=== PATIENT | female | born 1965 | race Caucasian/White ===

== ENCOUNTER → 2016-07-11 | Outpatient (CLI) | payer OTHER ==
[~2016-07-11] MED LIST: ALLEGRA 180MG180 MG PO; AMBIEN5 MG PO; AMITRIPTYLINE H25 M1 PO; ASPI325T6 PO; ASPIRIN 32325 MG/TAB PO; ASPIRIN 81M81 MG/TA2 PO; ASPIRIN E.C. 8181 MG PO; ATIVAN 1MG T1 MG/TAB; ATIVAN 1MG T1 MG/TAB PO; BENADRYL25 M2 PO; BIOTIN FORTE3 MG; BLOCADREN5 MG OP; BUSPAR10 MG PO; BYSTOLIC10 MG PO; BYSTOLIC20 MG PO; CARDIZEM 60MG T60 MG PO; CARDIZEM LA240 MG PO; CARDIZEM SR 60M60 MG PO; DEMEROL PO; DEPAKOTE; DESYREL 50MG50 MG PO; DILAUDID 2MG TAB2 MG PO; ENABLEX7.5 MG PO; ESCITALOPRAM; FLEXERIL 1010 MG/TAB PO; FLEXERIL10 MG PO; FOLIC ACID 11 MG/TA1 PO; HYGROTON 2525 MG/TAB; IMDUR 30MG30 MG/TAB PO; IMDUR 60MG60 MG/TAB PO; INDERAL 20MG20 MG PO; LAMICTAL 100MG100 MG PO; LAMICTAL150 MG PO; LEVAQUIN 750MG750 M1 PO; LIQUIFILM TEARS15 ML OU; LORTAB 5/500 501 TAB PO; LYRICA; MELAT3MGTAB; MELAT3MGTAB PO; MEPERIDINE HCL50 MG PO; MIRAPEX; MIRAPEX 1MG PO; MIRAPEX0.25 MG PO; MIRAPEX0.5 MG PO; MOTRIN 800800 MG/TAB PO; MULTIPLE VITAMI1 CAP PO; NAPROXEN EC500 MG PO; NEURONTIN600 MG/TAB; NEXIUM 40MG40 MG PO; NORCO 325 MG-51 TAB PO; NORCO 325 MG-7.1 TAB PO; OXAYDO7.5 MG PO; PEPCID 20MG TAB20 MG PO; PHENERGAN 25 TA25 MG PO; PHENERGAN25 MG RC; PRILOSEC 20MG20 MG PO; PROFERRIN ES12 MG PO; RANEXA 500MG T500 MG PO; REFRESH 1 ML1 ML OP; REFRESH TEARS 330 ML OP; ROBAXIN 50500 MG/TAB PO; SOMA 350MG350 MG/TAB PO; THALITONE15 MG PO; TIAZAC180 MG PO; TIMOLOL MALEATE5 M1 OP; TIMOPTIC 0.25%-10 OU; TOPROL XL 50MG50 MG PO; TOPROL XL50 MG PO; TRAZODONE150 MG PO; ULTRAM 50MG TAB50 MG PO; VALIUM 2MG T2 MG/TAB PO; VALIUM5 MG PO; VESICARE 5MG5 MG PO; VISTARIL 2525 MG/CAP PO; VIT B; VIT D; VITAMIN B COMPL1 SGL; VITAMIN D1000 IU PO; VITAMIN D5000 IU PO; WELLBUTRIN PO; WELLBUTRIN SR200 MG PO; WELLBUTRIN XL150 MG PO; WELLBUTRIN XL300 M1 PO; ZANAFLEX CAPSULE2 MG PO; ZANAFLEX CAPSULE4 MG PO; ZESTRIL 10MG10 MG PO; ZOLOFT 50MG50 MG PO; ZYRTEC 10MG10 MG PO; [UNRECOGNIZED DRUG - OTHER]; [UNRECOGNIZED DRUG - OTHER]; [UNRECOGNIZED DRUG - REMARK]; enablex
== END ==
LOC: COL.RAD 08:38
DX: M25.522 Pain in left elbow (principal)
CPT/HCPCS: A9503

== ENCOUNTER → 2016-09-26 | Outpatient (CLI) | payer OTHER | LOC: BHSO 14:56 | DX: F06.32 Mood disorder due to known physiological condition with major depressive-like episode (principal) ==

== ENCOUNTER → 2016-11-02 | Outpatient (CLI) | payer OTHER | LOC: BHSO 09:36 | DX: F06.32 Mood disorder due to known physiological condition with major depressive-like episode (principal) ==

== ENCOUNTER → 2016-12-26 | Outpatient (CLI) | payer OTHER | LOC: BHSO 10:32 | DX: F06.32 Mood disorder due to known physiological condition with major depressive-like episode (principal) ==

== ENCOUNTER 2017-01-21 21:59 | Emergency (ER) | payer OTHER ==
[~2017-01-21] VITALS: Ht 167.6 cm; Wt 90.4 kg
[~2017-01-21 21:59] MED LIST changes: -CARDIZEM 60MG T60 MG PO; -LIQUIFILM TEARS15 ML OU; -MIRAPEX 1MG PO; -PROFERRIN ES12 MG PO
[2017-01-21 22:02] VITALS: TEMP 97.8
[2017-01-21 22:40] LABS: BASO # 0.1 (0.0-0.2); BASO % 0.4 % (0.0-2.0); EOS # 0.2 (0.0-0.7); EOS % 0.9 % (0-4.0); GRAN # 10.9 (1.4-6.5); GRAN % 64.9 % (42.2-75.2); HEMATOCRIT 41.5 % (37.0-47.0); HEMOGLOBIN 14.5 g/dl (12.5-16.0); LYMPH # 4.8 (1.2-3.4); LYMPH % 28.5 % (20.0-51.0); MEAN CELL VOLUME 85 fl (80.0-100.0); MEAN CORPUSCULAR HEMOGLOBIN 30 pg (27.0-31.0); MEAN CORPUSCULAR HGB CONC 35 g/dl (33.0-37.0); MEAN PLATELET VOLUME 10.3 fl (7.4-10.4); MONO # 0.7 (0.1-0.6); MONO % 4.2 % (1.7-9.3); PLATELET COUNT 411 K/mm3 (130-400); RED BLOOD COUNT 4.91 M/mm3 (4.10-5.30); REDCELL DISTRIBUTION WIDTH-CV 12.6 % (11.5-14.5); WHITE BLOOD COUNT 16.9 K/mm3 (4.8-10.8)
[2017-01-21 22:48] LABS: INR 0.9 (0.8-3.0); PROTHROMBIN TIME 9.9 SECONDS (9.7-12.8)
[2017-01-21 22:52] LABS: ADJUSTED CALCIUM 9.6 mg/dL (8.4-10.2); ALANINE AMINOTRANSFERASE 67 U/L (9-52); ALBUMIN 4.8 gm/dL (3.5-5.0); ALKALINE PHOSPHATASE 83 U/L (50-136); ANION GAP 16 mmol/L (7-16); BILIRUBIN,TOTAL 0.4 mg/dL (0.0-1.0); BLOOD UREA NITROGEN 18 mg/dL (7-17); CALCIUM 10.2 mg/dL (8.4-10.2); CARBON DIOXIDE 23 mmol/L (22-30); CHLORIDE 101 mmol/L (98-107); CREATININE, serum 0.73 mg/dL (0.52-1.25); GLUCOSE 305 mg/dL (74-106); POTASSIUM 3.3 mmol/L (3.4-5.0); SODIUM 139 mmol/L (137-145); TOTAL PROTEIN 7.7 gm/dL (6.4-8.2)
[2017-01-21 22:53] LABS: C-REACTIVE PROTEIN 0.5 mg/dL (0.0-0.9)
[2017-01-21 23:03] LABS: TROPONIN-I < 0.012 ng/mL (0.000-0.034)
[2017-01-21 23:16] LABS: PH 5 (5-8); SQUAMOUS EPITHELIAL 0-2 /hpf; URINE APPEARANCE Clear; URINE BACTERIA None Seen /hpf; URINE BILIRUBIN Negative (NEGATIVE); URINE BLOOD Negative (NEGATIVE); URINE COLOR Yellow; URINE GLUCOSE 3+ (NEGATIVE); URINE KETONE Negative (NEGATIVE); URINE RBC 0-2 /hpf; URINE UROBILINOGEN Negative (NEGATIVE); URINE WBC 0-2 /hpf
[2017-01-22 00:30] VITALS: BP 121/82; PULSE 81
[2017-01-22] MEDS ORDERED: CARDIZEM 60MG T60 MG PO (05:23)
[2017-01-22] MEDS ORDERED: ALLEGRA 180MG180 MG PO (05:37)
[2017-01-22] MEDS ORDERED: LIQUIFILM TEARS15 ML OU (05:38)
[2017-01-22] MEDS ORDERED: PROFERRIN ES12 MG PO (05:38)
[2017-01-22] MEDS ORDERED: MIRAPEX 1MG PO (05:39)
[2017-01-22] MEDS ORDERED: NORCO 325 MG-51 TAB PO (05:43)
== END 2017-01-22 00:30 | disposition home or self-care (01) ==
LOC: COL.ER 21:59
PROVIDERS: Family Medicine
DX: E11.9 Type 2 diabetes mellitus without complications (principal); E86.0 Dehydration; Z79.82 Long term (current) use of aspirin
CPT/HCPCS: J7030

== ENCOUNTER → 2017-03-25 | Outpatient (CLI) | payer OTHER ==
[~2017-03-25] MED LIST changes: +CARDIZEM 60MG T60 MG PO; +LIQUIFILM TEARS15 ML OU; +MIRAPEX 1MG PO; +PROFERRIN ES12 MG PO
== END ==
LOC: BHSO 10:51
DX: F06.32 Mood disorder due to known physiological condition with major depressive-like episode (principal)

== ENCOUNTER → 2017-05-01 | Outpatient (CLI) | payer OTHER | LOC: BHSO 11:46 | DX: F06.32 Mood disorder due to known physiological condition with major depressive-like episode (principal) ==

== ENCOUNTER → 2018-01-31 | Outpatient (CLI) | payer OTHER | LOC: BHSO 14:29 | DX: F06.32 Mood disorder due to known physiological condition with major depressive-like episode (principal) | CPT/HCPCS: G0463 ==

== ENCOUNTER → 2018-03-04 | Outpatient (CLI) | payer OTHER | LOC: BHSO 10:20 | DX: F06.32 Mood disorder due to known physiological condition with major depressive-like episode (principal) | CPT/HCPCS: G0463 ==

== ENCOUNTER → 2018-04-17 | Outpatient (CLI) | payer OTHER | LOC: BHSO 14:02 | DX: F06.32 Mood disorder due to known physiological condition with major depressive-like episode (principal) | CPT/HCPCS: G0463 ==

== ENCOUNTER → 2018-05-30 | Outpatient (CLI) | payer OTHER | LOC: BHSO 08:05 | DX: F06.32 Mood disorder due to known physiological condition with major depressive-like episode (principal) | CPT/HCPCS: G0463 ==

== ENCOUNTER → 2018-07-25 | Outpatient (CLI) | payer OTHER | LOC: BHSO 13:49 | DX: F06.32 Mood disorder due to known physiological condition with major depressive-like episode (principal) ==

== ENCOUNTER → 2018-10-16 | Outpatient (CLI) | payer OTHER | LOC: COL.RAD 07:53 | DX: M25.552 Pain in left hip (principal) | CPT/HCPCS: J3301; Q9967 ==

== ENCOUNTER → 2018-10-22 | Outpatient (CLI) | payer OTHER | LOC: BHSO 13:53 | DX: F06.32 Mood disorder due to known physiological condition with major depressive-like episode (principal) | CPT/HCPCS: G0463 ==

== ENCOUNTER → 2018-12-15 | Outpatient (CLI) | payer OTHER | LOC: COL.RAD 08:00 | DX: M25.552 Pain in left hip (principal) | CPT/HCPCS: J3301; Q9967 ==

== ENCOUNTER → 2019-02-17 | Outpatient (CLI) | payer OTHER | LOC: BHSO 15:43 | DX: F06.32 Mood disorder due to known physiological condition with major depressive-like episode (principal) | CPT/HCPCS: G0463 ==

== ENCOUNTER → 2019-06-22 | Outpatient (CLI) | payer OTHER | LOC: COL.RAD 08:00 | DX: G57.02 Lesion of sciatic nerve, left lower limb (principal) | CPT/HCPCS: J3301; Q9967 ==

== ENCOUNTER → 2019-06-26 | Outpatient (CLI) | payer OTHER | LOC: COL.RAD 10:31 | DX: G57.02 Lesion of sciatic nerve, left lower limb (principal) | CPT/HCPCS: J3301 ==

== ENCOUNTER → 2019-09-22 | Outpatient (CLI) | payer OTHER | LOC: COL.RAD 12:53 | DX: M79.18 Myalgia, other site (principal) | CPT/HCPCS: J3301 ==

== ENCOUNTER → 2019-09-30 | Outpatient (CLI) | payer OTHER | LOC: COL.RAD 10:15 | DX: G43.719 Chronic migraine without aura, intractable, without status migrainosus (principal) ==

== ENCOUNTER → 2019-11-23 | Outpatient (CLI) | payer OTHER | LOC: BHSO 13:15 | DX: F06.32 Mood disorder due to known physiological condition with major depressive-like episode (principal) | CPT/HCPCS: G0463 ==

== ENCOUNTER 2020-02-06 19:57 | Emergency (ER) | payer OTHER ==
[~2020-02-06] VITALS: Ht 167.6 cm; Wt 87.3 kg
[2020-02-06 20:48] LABS: BASO # 0.1 (0.0-0.2); BASO % 0.5 % (0.0-2.0); EOS # 0.3 (0.0-0.7); EOS % 3.3 % (0-4.0); GRAN # 6.4 (1.4-6.5); GRAN % 63.7 % (42.2-75.2); HEMOGLOBIN 12.3 g/dl (12.5-16.0); LYMPH # 2.8 (1.2-3.4); LYMPH % 27.8 % (20.0-51.0); MEAN CELL VOLUME 85 fl (80.0-100.0); MEAN CORPUSCULAR HEMOGLOBIN 28 pg (27.0-31.0); MEAN CORPUSCULAR HGB CONC 33 g/dl (33.0-37.0); MEAN PLATELET VOLUME 10.4 fl (7.4-10.4); MONO # 0.4 (0.1-0.6); MONO % 3.5 % (1.7-9.3); PLATELET COUNT 382 K/mm3 (130-400); RED BLOOD COUNT 4.36 M/mm3 (4.10-5.30); REDCELL DISTRIBUTION WIDTH-CV 12.8 % (11.5-14.5)
[2020-02-06 20:54] LABS: ALBUMIN 4.2 gm/dL (3.5-5.0); BILIRUBIN,TOTAL 0.4 mg/dL (0.0-1.0); C-REACTIVE PROTEIN 1.1 mg/dL (0.0-0.9); CALCIUM 9.4 mg/dL (8.4-10.2); CREATININE, serum 0.64 (0.52-1.25); POTASSIUM 3.9 mmol/L (3.4-5.0); TOTAL PROTEIN 6.9 gm/dL (6.4-8.2)
[2020-02-06 21:17] LABS: ERYTHROCYTE SEDIMENTATION RATE 14 mm/hr (0-30)
[2020-02-06 22:07] VITALS: BP 129/79; PULSE 78; TEMP 98.2
== END 2020-02-06 22:10 | disposition home or self-care (01) ==
LOC: COL.ER 19:57
PROVIDERS: Emergency Medicine
DX: E11.9 Type 2 diabetes mellitus without complications (principal); G89.18 Other acute postprocedural pain; M25.552 Pain in left hip; I10 Essential (primary) hypertension; Z79.82 Long term (current) use of aspirin
CPT/HCPCS: J2405; J3010; J7030

== ENCOUNTER → 2020-04-26 | Outpatient (CLI) | payer OTHER | LOC: COL.VAS 13:46 | DX: R22.43 Localized swelling, mass and lump, lower limb, bilateral (principal) ==

== ENCOUNTER 2021-09-11 18:14 | Inpatient (IN) | payer OTHER ==
[~2021-09-11] VITALS: Ht 167.6 cm; Wt 77.7 kg
[2021-09-11] MEDS ORDERED: ZANAFLEX 4MG TAB4 MG PO (20:11)
[2021-09-11] MEDS ORDERED: ROXICODONE 55 MG/TAB PO (20:11)
[2021-09-11] MEDS ORDERED: ZOFRAN 4MG T4 MG/TAB PO (20:12)
[2021-09-11] MEDS ORDERED: CLARITIN 1010 MG/TAB PO (20:13)
[2021-09-11] MEDS ORDERED: NAPROSYN 2250 MG/TAB PO (20:14)
[2021-09-11] MEDS ORDERED: FLOMAX 0.40.4 MG/CAP PO (20:14)
[2021-09-11] MEDS ORDERED: VALTREX1 GM PO (20:15)
[2021-09-11] MEDS ORDERED: WELLBUTRIN SR150 M1 PO ×2 (20:17)
[2021-09-11] MEDS ORDERED: JANUVIA 100MG100 MG PO (20:19)
[2021-09-11] MEDS ORDERED: BYSTOLIC10 MG PO (20:20)
[2021-09-11] MEDS ORDERED: NITROSTAT0.4 MG/TAB SL (20:24)
[2021-09-11] MEDS ORDERED: NOVOLOG FLEX100 U/ML SQ ×2 (20:27)
[2021-09-11] MEDS ORDERED: PROTONIX 40MG T40 MG PO (20:28)
[2021-09-11] MEDS ORDERED: CALCIUM 600MG+D1 TAB PO (20:29)
[2021-09-11] MEDS ORDERED: LANTUS SOLOS100 U/ML SQ (20:29)
[2021-09-11] MEDS ORDERED: TRULICITY1.5 MG/0.5 SQ (20:30)
[2021-09-11 21:25] VITALS: BP 148/78; PULSE 78
[2021-09-11 21:31] VITALS: BP 157/75; PULSE 84; TEMP 98.1
[2021-09-11 21:40] VITALS: BP 140/74; PULSE 94
[2021-09-11 21:55] VITALS: BP 128/72; PULSE 80
[2021-09-11 22:55] VITALS: BP 119/74; PULSE 88
--- NOTE | 2021-09-11 23:11 | NUR ---
Patient arrived to surgical floor from [place] via EMS at approximately 2000. at bedside. Patient is alert and oriented x 4, and able to make needs known. Reports pain currently at a 4. Pain is to bilateral kidneys, but more on the left side than the right. Described at stabbing, and radiates to entire back, making it throb. Peripheral IV to right forearm. Updated med rec with patient, and called Dr. De La Rosa for orders. Started on [place] PUBLIC SPEAKING TEACHER. Ana voiced understanding on how PUBLIC SPEAKING TEACHER pump worked. Second nurse verrifed settings prior to starting. LS CTA. HRR. BSAx4. No edema. Patient has not urinated so far, but is aware that there is a urine hat in toilet to catch all urine and to call when done so that urine can be strained. Patient voices no questions, needs, or concerns at this time. In bed with call light within reach.
[2021-09-11 23:55] VITALS: BP 136/77; PULSE 102; TEMP 98.5
[2021-09-12] VITALS (18 sets, daily range): BP systolic 112–149; BP diastolic 65–89; PULSE 80–105; TEMP 97.8–98.8
--- NOTE | 2021-09-12 05:47 | NUR ---
Patient continues on MAKE UP OPERATOR HELPER pump per orders. Denies having pain and discomfort at this time. Voices no questions, needs, or concerns at this time. In bed with call light within reach.
--- NOTE | 2021-09-12 07:45 | NUR ---
PT SITTING UP IN BED WATCHING MOVIES ON IPAD. PT STATES THAT SHE IS "GETTING A LITTLE SHAKY FROM HER BS BEING LOWER." SIPS OF APPLE JUICE WAS GIVEN TO PT WITH MORNING MEDICATIONS. PT STATES THAT HER PAIN IS BEING VERY WELL CONTROLLED WITH THE SMALL CRAFT OPERATOR. PT STATES NO NEEDS AT THIS TIME. CONTINUES TO BE NPO FOR PROCEDURE TODAY. CALL LIGHT IS WITHIN REACH.
--- NOTE | 2021-09-12 10:02 | NUR ---
Several visit attempts; Mattress Filler left card letting patient know of the availability of Spirit[facility] Care at our hospital and offering God's blessings.
--- NOTE | 2021-09-12 11:36 | NUR ---
SW met with the patient to discuss discharge plan. The patient lives alone in [place]. She reports independence with ADLs and has a cane and walker. The patient's PCP is Dr. San and she receives her medications from [facility]. The patient does not have a DPOA-HC in EMR, but she states that she does have one completed and that she designated her , Serafin Carter" (ph#[phone]). She states that they are right now and he is living in [place]. She states that she still wants him as his DPOA-HC. The patient plans on returning home upon discharge. No additional needs at this time. *Discharge plan: home*
--- NOTE | 2021-09-12 12:12 | NUR ---
PT OFF FLOOR FOR PROCEDURE
--- NOTE | 2021-09-12 17:25 | NUR ---
PT RETURNED TO FLOOR FROM PROCEDURE. PT ON 3LIT VIA OXY MASK. PT STATES THAT SHE IS HAVING SOME BLADDER CRAMPING. PT STATES SHE HAS TO PEE. ASSITED PT TO BATHROOM AND WAS ABLE TO VOID 300 ML BLOODY URINE. PT STATES SHE WOULD LIKE TO HAVE SOME BROTH. ITEM WAS GIVEN TO PT. PT STATES NO OTHER NEEDS AT THIS TIME. CALL LIGHT IS WITHIN REACH.
[2021-09-13 00:58] VITALS: BP 123/76; PULSE 96; TEMP 97.8
--- NOTE | 2021-09-13 01:41 | NUR ---
Patient assessed around 2014. At that time, patient reported level 9 pain, did not want to go home for the night due to not being able to manage pain at home on just oral pain medication. Given PRN Levsin, Toradol, and Tinzanadine at that time. Also given scheduled Naproxen. Spoke with Dr. Najera. Increased Toradol to 30. Updated order and given an additional 15 mg around 2200. Patient wanted to stay the night for pain management. Reports hematuria, and reported small kidney stone being passed. Patient given PRN Roxicodone around 0130 as well as Levsin. IV fluids running per orders. Voices no questions, needs, or concerns at this time. In bed with call light within reach. Patient did get out of bed and ambulate in hallways.
[2021-09-13 03:04] VITALS: BP 128/69; PULSE 88; TEMP 98
[2021-09-13 03:22] VITALS: BP 128/69; PULSE 88; TEMP 98
--- NOTE | 2021-09-13 03:49 | NUR ---
At approximately 0300, patient called and reported that she was coming back from the bathroom, trying to sit on bed, but did not get close enough to the bed, and slid onto the floor when trying to sit down. VS obtained and documented. Denies any new pain or discomfort. No redness, skin tears, or abrasions noted at time of assessment. Denies hitting head. Patient was sitting in upright position against bed when staff had entered room. Assisted up with two assist to bed. Called and notified Dr. Merritt. Bagging Salvager aware. Patient voices no questions, needs, or concerns at this time. In bed with call light within reach.
--- NOTE | 2021-09-13 05:55 | NUR ---
Patient recieved PRN Roxicodone as requested for pain twice during the night. Did ask if she had any more IV pain medication. Explained to patient that she has an order for IV Toradol but can only have it every 8 hours and it was too soon to give it at that time. Voiced understanding. Voices no further questions, needs, or concerns at this time. In bed with call light within reach. INT'd fluids due to adequate PO intake.
--- NOTE | 2021-09-13 07:35 | NUR ---
Return call from Urology [facility] Rooney . Patient pain and concerns reviewed. Increase in Roxicodone made. Also resumed home dose of Bp Medication.
--- NOTE | 2021-09-13 08:00 | NUR ---
Patient Am medications given & reviewed. Increased dose of Roxicodone given as well as levsin to address her pain. Patient sitting up in bed. Awaiting her to arrive to have breakfast. Novolog given per orders. Plan for discharge home today. Patient dressed in home clothing, reviewed safety due to her fall over night, but noncompliant with fall policy.
[2021-09-13 08:12] VITALS: BP 137/84; PULSE 73; TEMP 97.9
--- NOTE | 2021-09-13 10:18 | NUR ---
Initial visit; Patient thanked Certified Coder for looking in on her and offering God's blessings. Certified Coder will keep Lottie in her prayers.
--- NOTE | 2021-09-13 11:35 | NUR ---
Patient ready for discharge. Her spouse at bedside. She reports her pain is improved. Int Dc. We reviewed discharge paperwork. She is aware of follow up appt. Denies questions or concerns at this time. Jennifer wheeled out with all belongings & her spouse taking her home
== END 2021-09-13 11:46 | disposition home or self-care (01) | DRG 661 ==
LOC: SURG 18:14 → MEDICAL 09-13 10:25 → SURG 09-13 11:46
PROVIDERS: Urology; ADMIT Urology
PROC: 0T768DZ Dilation of Right Ureter with Intraluminal Device, Via Natural or Artificial Opening Endoscopic (ICD-10-PCS; principal; 2021-09-12 14:45)
PROC: 0TC68ZZ Extirpation of Matter from Right Ureter, Via Natural or Artificial Opening Endoscopic (ICD-10-PCS; 2021-09-12 14:45)
PROC: BT1D1ZZ Fluoroscopy of Right Kidney, Ureter and Bladder using Low Osmolar Contrast (ICD-10-PCS; 2021-09-12 14:45)
DX: N20.1 Calculus of ureter (principal); G89.29 Other chronic pain; M54.9 Dorsalgia, unspecified; I25.119 Atherosclerotic heart disease of native coronary artery with unspecified angina pectoris; I10 Essential (primary) hypertension; K21.9 Gastro-esophageal reflux disease without esophagitis; M79.7 Fibromyalgia; F41.9 Anxiety disorder, unspecified; E11.9 Type 2 diabetes mellitus without complications; N28.9 Disorder of kidney and ureter, unspecified; G25.81 Restless legs syndrome; Z96.651 Presence of right artificial knee joint; Z79.82 Long term (current) use of aspirin; Z79.4 Long term (current) use of insulin; Z87.442 Personal history of urinary calculi
CPT/HCPCS: OP; C1769; C2617; G0378; G0379; J0690; J1100; J1170; J1200; J1815; J1885; J2270; J2405; J2704; J3010; J7030; Q9967

== ENCOUNTER → 2021-09-18 | Outpatient (CLI) | payer OTHER ==
[~2021-09-18] MED LIST changes: +CALCIUM 600MG+D1 TAB PO; +CLARITIN 1010 MG/TAB PO; +FLOMAX 0.40.4 MG/CAP PO; +JANUVIA 100MG100 MG PO; +LANTUS SOLOS100 U/ML SQ; +NAPROSYN 2250 MG/TAB PO; +NITROSTAT0.4 MG/TAB SL; +NOVOLOG FLEX100 U/ML SQ; +PROTONIX 40MG T40 MG PO; +ROXICODONE 55 MG/TAB PO; +TRULICITY1.5 MG/0.5 SQ; +VALTREX1 GM PO; +WELLBUTRIN SR150 M1 PO; +ZANAFLEX 4MG TAB4 MG PO; +ZOFRAN 4MG T4 MG/TAB PO
== END ==
LOC: MHCPAIN 15:17
DX: M53.3 Sacrococcygeal disorders, not elsewhere classified (principal); M47.816 Spondylosis without myelopathy or radiculopathy, lumbar region; M54.16 Radiculopathy, lumbar region; M96.1 Postlaminectomy syndrome, not elsewhere classified
CPT/HCPCS: G0463

== ENCOUNTER 2021-12-01 08:45 | Day surgery (SDC) | payer OTHER ==
[2021-12-01] VITALS (135 sets, daily range): BP systolic 112–151; BP diastolic 60–98; PULSE 73–101; TEMP 97.9; O2SAT 93–99
[~2021-12-01] VITALS: Ht 167.6 cm; Wt 79.3 kg
[2021-12-01 09:53] LABS: PROTHROMBIN TIME 11.8 SECONDS (9.7-12.8)
[2021-12-01 09:55] LABS: PARTIAL THROMBOPLASTIN TIME 30.9 SECONDS (26.0-37.0)
[2021-12-01 09:57] LABS: HEMOGLOBIN 11.6 g/dl (12.5-16.0); MEAN CELL VOLUME 83 fl (80.0-100.0); MEAN CORPUSCULAR HEMOGLOBIN 27 pg (27-31); MEAN CORPUSCULAR HGB CONC 33 g/dl (33.0-37.0); MEAN PLATELET VOLUME 10.4 fl (7.4-10.4); PLATELET COUNT 299 K/mm3 (130-400); RED BLOOD COUNT 4.23 M/mm3 (4.10-5.30); REDCELL DISTRIBUTION WIDTH-CV 14.4 % (11.5-14.5)
[2021-12-01] MEDS ORDERED: VALTREX1 GM PO (09:58)
[2021-12-01] MEDS ORDERED: FLOMAX 0.40.4 MG/CAP PO (10:00)
[2021-12-01 10:02] LABS: CALCIUM 8.9 mg/dL (8.4-10.2); CREATININE, serum 0.78 mg/dL (0.57-1.11); POTASSIUM 3.9 mmol/L (3.5-4.5)
[2021-12-01] MEDS ORDERED: ROXICODONE 55 MG/TAB PO (10:02)
[2021-12-01 10:03] LABS: HEMATOCRIT 35.1 % (37.0-47.0)
[2021-12-01] MEDS ORDERED: BYSTOLIC10 MG PO (10:04)
[2021-12-01] MEDS ORDERED: CLARITIN 1010 MG/TAB PO (10:05)
[2021-12-01] MEDS ORDERED: COLACE 100100 MG/CAP PO (10:10)
[2021-12-01] MEDS ORDERED: NORCO 325 MG-7.1 TAB PO (10:13)
[2021-12-01] MEDS ORDERED: LANTUS SOLOS100 U/ML SQ (10:15)
[2021-12-01] MEDS ORDERED: BIOTIN5000 MCG PO (10:18)
[2021-12-01] MEDS ORDERED: HCTZ12.5TAB PO (10:19)
[2021-12-01] MEDS ORDERED: WELLBUTRIN SR200 MG PO (10:20)
[2021-12-01] MEDS ORDERED: WELLBUTRIN SR100 M1 PO (10:21)
[2021-12-01] MEDS ORDERED: B COMPLEX #11 TA1 PO (10:22)
[2021-12-01] MEDS ORDERED: TRULICITY0.75 MG/0. SQ (10:22)
--- NOTE | 2021-12-01 11:14 | NUR ---
See merge for all medication, assessment, intervention, and vital sign times.
--- NOTE | 2021-12-01 12:03 | NUR ---
R RADIAL BRUISED BUT SOFT AT SITE
--- NOTE | 2021-12-01 12:15 | NUR ---
ELEVATED RIGHT WRIST ABOVE HEART, LAID PT HEAD FLAT, WARM BLANKET UNDER PTS LEFT HIP. PT REPORTS "ANYTIME I HAVE AN EVENT HAPPEN, MY BODY FREAKS OUT IN PAIN". PT REPORTS SOME RELIEF IN PAIN.
--- NOTE | 2021-12-01 13:10 | NUR ---
Pt requests to take her own norco 7.5mg tab that she normally takes TID. She did not take this morning's dose prior to procedure. This is communicated to Dr Rodriguez through Ayesha Shaffer RN. Dr Rodriguez states he is fine with pt taking dose of her own norco. They are also notified of pt's request for written clearance from Dr Rodriguez that she can give to her PCP and surgeon in [place].
--- NOTE | 2021-12-01 13:30 | NUR ---
CHARGE NURSE WITH MANUAL PRESSURE ABOVE R RADIAL SITE D/T PT BEING IN PAIN. REINFORCING IRON WORKER HELPER NURSES AT BEDSIDE CHECKING SITE, SOME AIR REMOVED, SITE STARTED TO BLEED, AIR REPLACED BY CATH NURSES. PT LAID BACK AGAIN WITH ARM ELEVATED ABOVE HEART, SOME PAIN RELIEVED. PT REPORTS "I'M 2 DOSES BEHIND ON MY PAIN MEDICATION THAT I TAKE 3 TIMES A DAY". DR. LORIN VU NURSE PAGED X2.
== END 2021-12-01 16:05 | disposition home or self-care (01) ==
LOC: COL.CAR 08:45
PROVIDERS: Internal Medicine Cardiovascular Disease
DX: R94.39 Abnormal result of other cardiovascular function study (principal); Z79.82 Long term (current) use of aspirin
CPT/HCPCS: C1769; C1887; J1644; J2250; J3010; Q9967

== ENCOUNTER 2022-08-03 03:22 | Emergency (ER) | payer OTHER ==
[~2022-08-03] VITALS: Ht 167.6 cm; Wt 90.9 kg
[~2022-08-03 03:22] MED LIST changes: +B COMPLEX #11 TA1 PO; +BIOTIN5000 MCG PO; +COLACE 100100 MG/CAP PO; +HCTZ12.5TAB PO; +TRULICITY0.75 MG/0. SQ; +WELLBUTRIN SR100 M1 PO
[2022-08-03 03:27] VITALS: TEMP 97.2
[2022-08-03 03:40] LABS: BASO # 0.1 K/mm3 (0.0-0.2); BASO % 0.8 % (0.0-2.0); EOS # 0.6 K/mm3 (0.0-0.7); EOS % 4.9 % (0.0-4.0); GRAN # 6.6 K/mm3 (1.4-6.5); GRAN % 57.7 % (42.2-75.2); HEMOGLOBIN 10.7 g/dl (12.5-16.0); LYMPH # 3.6 K/mm3 (1.2-3.4); LYMPH % 31.1 % (20.0-51.0); MEAN CELL VOLUME 81 fl (80.0-100.0); MEAN CORPUSCULAR HEMOGLOBIN 26 pg (27-31); MEAN CORPUSCULAR HGB CONC 32 g/dl (33.0-37.0); MEAN PLATELET VOLUME 10.4 fl (7.4-10.4); MONO # 0.6 K/mm3 (0.1-0.6); PLATELET COUNT 371 K/mm3 (130-400); RED BLOOD COUNT 4.15 M/mm3 (4.10-5.30); REDCELL DISTRIBUTION WIDTH-CV 13.8 % (11.5-14.5)
[2022-08-03 03:41] LABS: HEMATOCRIT 33.6 % (37.0-47.0)
[2022-08-03 03:58] LABS: ALBUMIN 3.8 gm/dL (3.5-5.0); BILIRUBIN,TOTAL 0.3 mg/dL (0.2-1.2); C-REACTIVE PROTEIN 0.55 mg/dL (0.00-0.50); CALCIUM 9.4 mg/dL (8.4-10.2); CREATININE, serum 0.85 mg/dL (0.57-1.11); POTASSIUM 3.6 mmol/L (3.5-4.5); TOTAL PROTEIN 6.9 gm/dL (6.2-8.1)
[2022-08-03 04:00] LABS: COLLECTION METHOD CLEAN CATCH
[2022-08-03 04:14] LABS: MUCOUS Present (NOT PRESENT); PH 6.5 (5.0-8.5); SQUAMOUS EPITHELIAL 0-2 /hpf (0-10); URINE APPEARANCE Cloudy (CLEAR/HAZY); URINE BACTERIA Rare /hpf (NONE SEEN); URINE BLOOD 1+ (NEGATIVE); URINE COLOR Yellow (YELLOW); URINE GLUCOSE Negative (NEGATIVE); URINE KETONE Negative (NEGATIVE); URINE NITRATE Positive (NEGATIVE); URINE PROTEIN(semi-quant) Negative (NEGATIVE); URINE RBC 20-50 /hpf (0-2); URINE UROBILINOGEN 0.2 E.U/dL (0.2-1.0)
[2022-08-03] MEDS ORDERED: ROBAXIN 50500 MG/TAB PO (05:39)
[2022-08-03 06:31] VITALS: BP 113/63; PULSE 93
[2022-08-05] MEDS ORDERED: PRIL40 PO (08:42)
[2022-08-05] MEDS ORDERED: COMPLETE MULTI1 TAB PO (09:04)
[2022-08-05] MEDS ORDERED: BYSTOLIC10 MG PO (09:04)
[2022-08-05] MEDS ORDERED: NORVASC 10MG10 MG PO (09:04)
[2022-08-05] MEDS ORDERED: PROBIOTIC BLEN1 EACH PO (09:05)
[2022-08-05] MEDS ORDERED: B COMPLEX #11 TA1 PO (09:05)
[2022-08-05] MEDS ORDERED: ALLEGRA 180MG180 MG PO (09:05)
[2022-08-05] MEDS ORDERED: TRULICITY0.75 MG/0. SQ (09:06)
[2022-08-05] MEDS ORDERED: BENADRYL25 M2 PO (09:06)
[2022-08-05] MEDS ORDERED: ASTEPRO205.5 MCG/ NS (09:06)
[2022-08-11] MEDS ORDERED: ROBAXIN 50500 MG/TAB PO (08:14)
[2022-08-11] MEDS ORDERED: PRIL40 PO (08:15)
== END 2022-08-03 06:30 | disposition home or self-care (01) ==
LOC: COL.ER 03:22
PROVIDERS: Emergency Medicine
DX: N20.0 Calculus of kidney (principal); N39.0 Urinary tract infection, site not specified; Z88.1 Allergy status to other antibiotic agents; Z87.442 Personal history of urinary calculi; Z28.310 Unvaccinated for COVID-19
CPT/HCPCS: J0696; J1200; J1885; J2405; J3010; J7030; Q9967

== ENCOUNTER 2022-08-09 11:30 | Outpatient (RCR) | payer OTHER ==
[2022-08-04 08:45] VITALS: BP 139/78; PULSE 94; TEMP 98
[2022-08-05 08:44] VITALS: BP 112/74; PULSE 90; TEMP 98
--- NOTE | 2022-08-05 09:08 | NUR ---
Pt tolerated injection without issue. She is escorted to ED entrance.
[2022-08-06 09:03] VITALS: BP 159/89; PULSE 94; TEMP 97.7
[2022-08-07 08:59] VITALS: BP 131/82; PULSE 93; TEMP 98.3
[~2022-08-09] VITALS: Ht 167.6 cm; Wt 96.5 kg
[~2022-08-09 11:30] MED LIST changes: +ASTEPRO205.5 MCG/ NS; +COMPLETE MULTI1 TAB PO; +NORVASC 10MG10 MG PO; +PRIL40 PO; +PROBIOTIC BLEN1 EACH PO
[2022-08-09 11:41] VITALS: BP 111/69; PULSE 88; TEMP 98
[2022-08-11] MEDS ORDERED: ROBAXIN 50500 MG/TAB PO (08:14)
[2022-08-11] MEDS ORDERED: PRIL40 PO (08:15)
== END 2022-08-09 11:45 | disposition home or self-care (01) ==
LOC: EUO 11:30
DX: N20.0 Calculus of kidney (principal); N39.0 Urinary tract infection, site not specified
CPT/HCPCS: J0696

== ENCOUNTER 2023-06-25 20:02 | Emergency (ER) | payer OTHER ==
[~2023-06-25] VITALS: Ht 167.6 cm; Wt 97.7 kg
[~2023-06-25 20:02] MED LIST changes: +CALCIUM 600 MG1 EAC2 PO; +HONEY BEARS MU1 EACH PO; +T SLIM X MC
[2023-06-25 20:09] VITALS: TEMP 97.4
[2023-06-25] MEDS ORDERED: NS 1,000 ML IV ONE (20:30)
[2023-06-25 20:45] LABS: COLLECTION METHOD CLEAN CATCH
[2023-06-25 21:01] LABS: BASO % 0.3 % (0.0-2.0); EOS # 0.3 K/mm3 (0.0-0.7); EOS % 2.6 % (0.0-4.0); GRAN # 6.9 K/mm3 (1.4-6.5); LYMPH # 2.5 K/mm3 (1.2-3.4); MEAN CELL VOLUME 74 fl (80.0-100.0); MEAN CORPUSCULAR HGB CONC 30 g/dl (33.0-37.0); MEAN PLATELET VOLUME 10.4 fl (7.4-10.4); MONO # 0.4 K/mm3 (0.1-0.6); MONO % 3.9 % (1.7-9.3); PLATELET COUNT 373 K/mm3 (130-400); RED BLOOD COUNT 4.13 M/mm3 (4.10-5.30); REDCELL DISTRIBUTION WIDTH-CV 15.9 % (11.5-14.5)
[2023-06-25 21:03] LABS: HEMATOCRIT 30.7 % (37.0-47.0); HEMOGLOBIN 9.3 g/dl (12.5-16.0); MEAN CORPUSCULAR HEMOGLOBIN 23 pg (27-31)
[2023-06-25 21:20] LABS: URINE APPEARANCE Clear (CLEAR/HAZY); URINE COLOR Yellow (YELLOW)
[2023-06-25 21:21] LABS: SQUAMOUS EPITHELIAL 0-2 /hpf (0-10); URINE BLOOD Negative (NEGATIVE); URINE GLUCOSE Negative (NEGATIVE); URINE KETONE Negative (NEGATIVE); URINE NITRATE Negative (NEGATIVE); URINE PROTEIN(semi-quant) Negative (NEGATIVE); URINE RBC 0-2 /hpf (0-2); URINE UROBILINOGEN 0.2 E.U/dL (0.2-1.0)
[2023-06-25 21:30] LABS: ALBUMIN 3.5 gm/dL (3.5-5.0); BILIRUBIN,TOTAL 0.3 mg/dL (0.2-1.2); C-REACTIVE PROTEIN 0.79 mg/dL (0.00-0.50); CREATININE, serum 0.97 mg/dL (0.57-1.11); POTASSIUM 3.7 mmol/L (3.5-4.5); TOTAL PROTEIN 6.6 gm/dL (6.2-8.1)
[2023-06-25] MEDS ORDERED: Morphine 4 MG/ML VIAL IV ONE (21:30)
[2023-06-25 23:10] VITALS: BP 143/94; PULSE 87
== END 2023-06-25 23:17 | disposition home or self-care (01) ==
LOC: COL.ER 20:02
PROVIDERS: Emergency Medicine
DX: N20.0 Calculus of kidney (principal); R79.82 Elevated C-reactive protein (CRP); D64.9 Anemia, unspecified; E11.9 Type 2 diabetes mellitus without complications; Z96.0 Presence of urogenital implants
CPT/HCPCS: J2270; J7030

== ENCOUNTER → 2023-08-28 | Outpatient (CLI) | payer OTHER | LOC: COL.RAD 09:01 | DX: M25.561 Pain in right knee (principal) | CPT/HCPCS: A9503-JZ ==

== ENCOUNTER 2023-12-20 14:15 | Day surgery (SDC) | payer OTHER ==
[~2023-12-20] VITALS: Ht 167.6 cm; Wt 97.9 kg
[~2023-12-20 14:15] MED LIST changes: +LR 1,000 ML IV SCH; +Ondansetron 4 MG/2 ML VIAL IV PRN
[2023-12-20 15:29] VITALS: BP 130/85; PULSE 101; TEMP 97.4
[2023-12-20] MEDS ORDERED: WELLBUTRIN 100100 MG PO (15:40)
[2023-12-20] MEDS ORDERED: FLEXERIL 1010 MG/TAB PO (15:43)
[2023-12-20] MEDS ORDERED: DULCOLAX TAB5 MG PO (15:43)
[2023-12-20] MEDS ORDERED: MULTIVITAMIN200 MCG PO (15:44)
[2023-12-20] MEDS ORDERED: Lidocaine PF 2% (20 MG/ML) 5 ML VIAL ONE (15:46)
[2023-12-20 16:15] VITALS: BP 133/57; PULSE 92; TEMP 97.5
[2023-12-20 16:30] VITALS: BP 127/72; PULSE 99
--- NOTE | 2023-12-20 18:03 | NUR ---
1615: PT TO BAY 1 FROM ENDO SUITE. AMBULATED FROM CART TO RECLINER X2 ASSIST. REPORT RECEIVED FROM ENDO NURSE. PT ALERT AND ORIENTED. PT TEARFUL. PT DENIES PAIN OR NAUSEA. REQUESTING JELLO AND SPRITE. STATING HER DEXACOM IS READING 68 RESTING IN RECLINER. CALL LIGHT IN REACH. , YOSHI, AT BEDSIDE. 1620: DR. BUCHANAN IN TO SPEAK WITH PT. NOTIFIED HIM OF LOW DEXACOM READING. PT REQUESTING MUFFIN AT THIS TIME. 1630: PT ALERT AND ORIENTED. TOLERATING MUFFIN AND SPRITE. DENIES PAIN AND NAUSEA. PT NO LONGER TEARFUL AND FEELING BETTER.RESTING IN RECLINER. CALL LIGHT IN REACH. AT BEDSIDE. 1637: PT ALERT AND ORIENTED. NO C/O PAIN OR NAUSEA. BLOOD GLUCOSE ON DEXACOM UP TO 118. NO FURTHER NEEDS NOTED. AT BEDSIDE. 1645: DISCHARGE EDUCATION DONE AT THIS TIME. PT STATED UNDERSTANDING OF DC INSTRUCTIONS. DC PAPERWORK GIVEN TO PT. IV DC'D AT THIS TIME. PT DENIES ASSISTANCE WITH DRESSING. 1650: PT AMBULATED INDEPENDENTLY FROM RECLINER TO WHEELCHAIR. PT OFF UNIT AT THIS TIME. PT DC TO HOME WITH PER PERSONAL VEHICLE.
== END 2023-12-20 16:50 | disposition home or self-care (01) ==
LOC: SDCO 14:15
DX: D50.9 Iron deficiency anemia, unspecified (principal); K59.00 Constipation, unspecified; K21.9 Gastro-esophageal reflux disease without esophagitis; E11.9 Type 2 diabetes mellitus without complications; Z98.84 Bariatric surgery status; Z79.4 Long term (current) use of insulin; Z79.85 Long-term (current) use of injectable non-insulin antidiabetic drugs
CPT/HCPCS: J2704; J7120

== ENCOUNTER → 2024-04-01 | Outpatient (CLI) | payer OTHER ==
[~2024-04-01] MED LIST changes: +DULCOLAX TAB5 MG PO; -LR 1,000 ML IV SCH; +MULTIVITAMIN200 MCG PO; -Ondansetron 4 MG/2 ML VIAL IV PRN; +WELLBUTRIN 100100 MG PO
== END ==
LOC: COL.RAD 12:32
DX: R22.42 Localized swelling, mass and lump, left lower limb (principal)